=== PATIENT | female | born 1975 | race Caucasian/White ===

== ENCOUNTER → 2017-06-27 | Outpatient (CLI) | payer BC, OTHER ==
[~2017-06-27] MED LIST: CALTRATE 600+D1 TAB PO; CELEXA10 MG PO; CELEXA20 M1 PO; FLEXERIL10 MG PO; LORTAB 5/500 501 TAB PO; MEDROL 4MG. DOSE4 MG PO; NAPROSYN 500MG500 MG PO; NOMEDS *; TRAMADOL 50MG T50 MG PO
--- NOTE | 2017-06-27 10:57 | RADIOLOGY REPORT PS360 ---
FOOT-LT-3 VIEWS HISTORY: Left foot pain PLANTAR FASCIITIS ORDERING PHYSICIAN: ANIA FOSTER DPM PATIENT AGE: 42 years COMPARISON: None FINDINGS: Weightbearing views are performed. There is mild hallux valgus with first metatarsophalangeal angle of 17 degrees. There are minimal osteoarthritic changes are present at the first metatarsophalangeal joint. No evidence of pes planus. There is a calcaneal spur measuring 6 mm without obvious erosive changes of the spur. Achilles insertion enthesophyte also noted. Minimal hypertrophic changes noted at the talonavicular joint dorsally. No fracture or dislocation. No lytic or blastic change. IMPRESSION: 1. Minimal hallux valgus. 2. Small calcaneal spur. 3. Mild spurring at the talonavicular joint
--- NOTE | 2017-07-03 09:29 | RADIOLOGY REPORT PS360 ---
MRI-LOW EXT OTH THN JNT W/WORT MRI RIGHT FOOT-with attention midfoot & forefoot/ HISTORY: RIGHT NAVICULAR PAIN, RULE OUT AVN Patient Age: 42 years: Female Ordering Physician: ANIA FOSTER DPM TECHNIQUE: Multiplanar multisequence MRI 1.5 [place] COMPARISON :Radiographs right foot 06/06/2017 and right ankle 04/29/2010. FINDINGS The provided history states rule out avascular necrosis at the navicular within the tarsal navicular appears normal signal with no evidence of AVN. The other tarsal bones appear to be intact with no prominent signal changes. Metatarsals are unremarkable. Upper normal fluid in the first MTP joint with Degenerative changes here. Toes but with no prominent findings. Perhaps scant increased joint fluid at ankle joint as seen both anterior and posterior to the joint.. Scant fluid extends towards the posterior subtalar joint Also question some scant increased signal at the plantar calcaneal spur and scant signal overlying the plantar aponeurosis is a passes along the inferior aspect of thisbr calcaneal spur. Minimal inflammatory changes here may reflect plantar fasciitis history. No coronal images obtained this region but we do have axial and sagittal views. The peroneus tendons appear intact posterior to the lateral malleolus Tibialis posterior tendon, flexor digitorum longus and flexor hallucis longus tendons appear intact. Normal signal the tendons. Upper normal fluid is seen along the posterior margin of the tibialis posterior tendon and adjacent to the FHL. IMPRESSION 1.. The navicular appears intact.. This & Other tarsal bones appear intact;. No significant bony edema at navicular nor mid foot nor. No evidence of AVN 2. Slight increased joint fluid at the ankle joint which is seen both anterior and posterior to the ankle joint and along the posterior subtalar joint. 3.. Minimal Features compatible with history plantar fasciitis. Require clinical correlation . Suggestion of some scant fluid/edema adjacent to plantar aponeurosis at towards its calcaneal insertion. . Suggestion subtle increased bone signal throughout moderate size plantar calcaneal spurring which may reflect some subtle reactive bone edema here, as well as questionably along inferior margin calcaneus.. Insertion, -. These features suggesting mild regional inflammatory changes may reflect the history of plantar fasciitis. (I would note the cortical images and positioning of this study focused on the mid foot and forefoot rather than hindfoot )
== END ==
LOC: RAD 06-23 13:00
DX: M79.671 Pain in right foot (principal); M72.2 Plantar fascial fibromatosis; M76.61 Achilles tendinitis, right leg; M76.62 Achilles tendinitis, left leg
CPT/HCPCS: A9576